=== PATIENT | male | born 1940 | race Caucasian/White ===

== ENCOUNTER 2018-08-24 19:06 | Observation (INO) | payer MEDICARE ==
--- NOTE | 2018-08-24 20:19 | ED ---
General Adult HPI - General Chief complaint: Shortness of Breath Stated complaint: A-Fib Time Seen by Provider: 08/24/18 19:25 Source: patient, EMS Mode of arrival: EMS - History of Present Illness Initial comments: Dictation was produced using [employer] dictation software. please excuse any grammatical, word or spelling errors. Chief Complaint: 77-year-old male transferred from [place] for new onset atrial fibrillation History of Present Illness: 77-year-old male with past medical history of diabetes presents via transfer from [place] emergency department. Patient was seen and evaluated by emergency department physician there. He was found to have new-onset atrial fibrillation who started on Cardizem and heparin infusions. Patient reports having been symptomatic for approximately one month. Patient has other complaint at this time. Denies any chest pain. The ROS documented in this emergency department record has been reviewed and confirmed by me. Those systems with pertinent positive or negative responses have been documented in the HPI. All other systems are other negative and/or noncontributory. PHYSICAL EXAM: General Impression: Alert and oriented x3, not in acute distress HEENT: Normocephalic atraumatic, extra-ocular movements intact, pupils equal and reactive to light bilaterally, mucous membranes moist. Cardiovascular: Irregularly irregular rhythm. Chest: Lungs clear to auscultation bilaterally, no rhonchi, no wheeze, no rales Abdomen: Bowel sounds present, abdomen soft, non-tender, non-distended, no organomegaly Musculoskeletal: Pulses present and equal in all extremities, no peripheral edema Motor: no focal deficits noted Neurological: CN II-XII grossly intact, no focal motor or sensory deficits noted Skin: Intact with no visualized rashes Psych: Normal affect and mood ED course: 77-year-old male presents via transfer from [facility] foratrial fibrillation. Patient is evaluated at bedside 5 beats to medical condition. Labs and records were reviewed from [facility]. Patient appears stable at this time. Patient be admitted. Patient's rate is controlled with Cardizem drip. EKG interpretation: Ventricular rate 78, H or for ablation, QRS 120, QTc 41. No IL prolongation, no QTC prolongation, no ST or T-wave changes noted. - Related Data Home Medications Medication Instructions Recorded Confirmed Enalapril [Vasotec] 20 mg PO DAILY 08/24/18 08/24/18 amLODIPine [Norvasc] 10 mg PO DAILY 08/24/18 08/24/18 metFORMIN HCL [Glucophage] 500 mg PO BID 08/24/18 08/24/18 sitaGLIPtin [Januvia] 100 mg PO DAILY 08/24/18 08/24/18 Allergies Allergy/AdvReac Type Severity Reaction Status Date / Time glipizide Allergy Unknown Verified 08/24/18 20:04 Review of Systems ROS Statement: Those systems with pertinent positive or pertinent negative responses have been documented in the HPI. ROS Other: All systems not noted in ROS Statement are negative. Past Medical History Past Medical History: Atrial Fibrillation, Diabetes Mellitus, Myocardial Infarction ([place]) History of Any Multi-Drug Resistant Organisms: None Reported Past Surgical History: No Surgical Hx Reported Past Psychological History: No Psychological Hx Reported Smoking Status: Current every day smoker Past Alcohol Use History: None Reported Past Drug Use History: None Reported Course Vital Signs 08/24/18 08/24/18 19:16 19:24 Pulse Rate 73 Respiratory 20 20 Rate Blood Pressure 107/96 O2 Sat by Pulse 93 L Oximetry Disposition Clinical Impression: Atrial fibrillation Disposition: ADMITTED IP TO THIS HOSP Condition: Good Referrals: Geo Lee MD [Primary Care Provider] - 1-2 days Decision Time: 20:19
[2018-08-24] MEDS ORDERED: NALOXONE 0.4 MG/ML 1 ML VIAL IV PRN (21:03)
[2018-08-24] MEDS ORDERED: SODIUM CHLORIDE 0.9% 1,000 ML IV SCH (21:15)
[2018-08-24] MEDS ORDERED: IPRATROPIUM-ALBUTEROL 3 ML NEB INHALATION STA (22:08)
[2018-08-25 00:01] VITALS: BMI 37.1
[2018-08-25] MEDS ORDERED: HEPARIN SODIUM,PORCINE 5,000 UNIT/ML 1 ML VIAL IV PRN (01:10)
[2018-08-25] MEDS ORDERED: HEPARIN SODIUM,PORCINE 5,000 UNIT/ML 1 ML VIAL IV ONE (01:10)
[2018-08-25] MEDS ORDERED: HEPARIN SOD,PORK IN 0.45% NACL 25,000 UNIT in 0.45% NACL 1 250ML.BAG IV SCH (01:15)
[2018-08-25 02:59] LABS: HCT 45.3 % (39.0-53.0); HGB 14.4 gm/dL (13.0-17.5); MCH 28.2 pg (25.0-35.0); MCHC 31.7 g/dL (31.0-37.0); Mean Platelet Volume 7.7; Platelet Count 198 k/uL (150-450); RBC 5.09 m/uL (4.30-5.90); RDW 13.9 % (11.5-15.5); WBC 10.1 k/uL (3.8-10.6)
[2018-08-25 03:34] LABS: Potassium 4.4 mmol/L (3.5-5.1)
[2018-08-25 06:36] LABS: Glucose,Whole Blood 112 mg/dL (75-99)
[2018-08-25] MEDS: IPRATROPIUM-ALBUTEROL 3 ML NEB INHALATION PRN ×2 (06:52→11:00)
--- NOTE | 2018-08-25 08:00 | XR ---
EXAMINATION TYPE: XR chest 1V portable DATE OF EXAM: 08/25/2018 HISTORY: Shortness of breath. COMPARISON: None. TECHNIQUE: Single view of the chest is submitted. FINDINGS: Patchy basilar infiltrates and/or atelectasis with small effusions. Scattered areas of linear atelect asis persists. The heart is stable. Hilar and mediastinal structures are within normal limits. Degenerative changes are seen of the dorsal spine. IMPRESSION: 1. Patchy basilar infiltrates and/or atelectasis with small effusions. Scattered areas of linear ate lectasis persists.
[2018-08-25] MEDS ORDERED: METOPROLOL TARTRATE 25 MG TAB PO SCH (09:00)
[2018-08-25] MEDS ORDERED: FUROSEMIDE 10 MG/ML 4 ML VIAL IV STA (09:29)
--- NOTE | 2018-08-25 10:30 | US ---
EXAMINATION TYPE: US venous doppler duplex LE BI DATE OF EXAM: 08/25/2018 10:20 AM COMPARISON: NONE CLINICAL HISTORY: elevated d-dimer. Elevated d-dimer, bilateral lower leg and feet swelling, patient on blood thinners, exam done portable. SIDE PERFORMED: Bilateral TECHNIQUE: The lower extremity deep venous system is examined utilizing real time linear array sonog josee with graded compression, doppler sonography and color-flow sonography. VESSELS IMAGED: External Iliac Vein (EIV) Common Femoral Vein Deep Femoral Vein Greater Saphenous Vein * Femoral Vein Popliteal Vein Small Saphenous Vein * Proximal Calf Veins (* superficial vessels) Difficult and limited study due to patient body habitus and exam done with patient sitting up in be dside chair, unable to obtain images of bilateral EIV, greater saphenous vein, CFV and deep femoral v ein due to patient position, exam started at proximal/mid femoral vein. Right Leg: Visualized portions appear negative for DVT Left Leg: Visualized portions appear negative for DVT IMPRESSION: No evidence for DVT at this time.
[2018-08-25 10:44] LABS: Cholesterol 100 mg/dL (<200); HDL Cholesterol 28 mg/dL (40-60); LDL Cholesterol,Calculated 60 mg/dL (0-99); Triglycerides 59 mg/dL (<150)
--- NOTE | 2018-08-25 10:52 | P.CRDCN ---
History of Present Illness History of present illness: This is Dr. Chavez dictating a consult on this patient The patient was interviewed and examined by me IMPRESSION / ASSESSMENT: Atrial fibrillation with a controlled ventricular response Shortness of breath at rest Type 2 diabetes Hypertension, controlled PLAN: 2-D echo and Doppler study to assess cardiac structure and function Workup for pulmonary embolism recommended given the elevated d-dimer Continue metoprolol Continue IV heparin IV Lasix tsh HPI 77-year-old male patient presenting with shortness of breath for 3-4 months but very short of breath now for the last one week. For the last 3-4 days he's had progressive lower extremity edema. Completely denies angina or chest discomfort History of adult-onset diabetes, hypertension Found to be in atrial fibrillation, currently the heart rates are controlled Continue IV heparin Metoprolol 25 mg twice daily ROS: No fever chills or rigors, no cough, phlegm or expectoration, no nausea, vomiting or diarrhea, no hematuria, dysuria, no musculoskeletal complaints, no strokes or seizures, no skin lesions. EXAMINATION: On examination he is visibly short of breath at rest. Very short of breath with minimal exertion, complains of orthopnea, heart rates in 100 110 beats a minute Blood pressure 119/70 mmHg respirations 20 Breath sounds are reduced bilaterally with rhonchorous breath sounds bilaterally and some crackles at both bases Heart sounds are irregular Abdomen is soft Bilateral lower extremity edema REVIEW OF LABS, ECG & MEDICAL DATA Hemoglobin 14.4, white count 10.1, sodium 138, potassium 4.4, BUN 21 and creatinine 0.98 ProBNP 2700 D-dimer 1.1 Past Medical History Past Medical History: Atrial Fibrillation, COPD, Diabetes Mellitus, Hypertension Additional Past Medical History / Comment(s): Chroncic Bronchitis History of Any Multi-Drug Resistant Organisms: None Reported Past Surgical History: No Surgical Hx Reported Past Anesthesia/Blood Transfusion Reactions: No Reported Reaction Past Psychological History: No Psychological Hx Reported Smoking Status: Current every day smoker Past Alcohol Use History: None Reported Past Drug Use History: None Reported Medications and Allergies Home Medications Medication Instructions Recorded Confirmed Type Enalapril [Vasotec] 20 mg PO DAILY 08/24/18 08/24/18 History amLODIPine [Norvasc] 10 mg PO DAILY 08/24/18 08/24/18 History metFORMIN HCL [Glucophage] 500 mg PO BID 08/24/18 08/24/18 History sitaGLIPtin [Januvia] 100 mg PO DAILY 08/24/18 08/24/18 History Allergies Allergy/AdvReac Type Severity Reaction Status Date / Time glipizide Allergy Unknown Verified 08/24/18 20:04 Physical Exam Vitals: Vital Signs Temp Pulse Pulse Resp BP BP Pulse Ox 08/25/18 08:00 98.2 F 74 20 119/70 97 08/25/18 07:04 108 H 08/25/18 06:54 100 08/25/18 03:54 97.9 F 100 20 106/66 93 L 08/25/18 01:22 95 08/25/18 01:16 90 08/25/18 00:00 97.9 F 79 21 127/79 96 08/24/18 23:04 97.6 F 90 22 100/70 95 08/24/18 22:31 99 08/24/18 22:24 98 08/24/18 19:24 20 08/24/18 19:23 97.8 F 08/24/18 19:16 73 20 107/96 93 L Intake and Output 08/24/18 08/25/18 08/25/18 22:59 06:59 14:59 Intake Total 240 Output Total 550 Balance -550 240 Intake: Oral 240 Output: Urine 550 Other: Weight 104.326 kg 104.3 kg Results 08/25/18 01:44 08/25/18 01:44 Coagulation 08/25/18 08/25/18 Range/Units 01:44 09:32 APTT 26.0 39.5 H (22.0-30.0) sec Lipids 08/25/18 Range/Units 09:32 Triglycerides 59 (<150) mg/dL Cholesterol 100 (<200) mg/dL HDL Cholesterol 28 L (40-60) mg/dL CBC 08/25/18 Range/Units 01:44 WBC 10.1 (3.8-10.6) k/uL RBC 5.09 (4.30-5.90) m/uL Hgb 14.4 (13.0-17.5) gm/dL Hct 45.3 (39.0-53.0) % Plt Count 198 (150-450) k/uL Comprehensive Metabolic Panel 08/25/18 Range/Units 01:44 Sodium 138 (137-145) mmol/L Potassium 4.4 (3.5-5.1) mmol/L Chloride 105 (98-107) mmol/L Carbon Dioxide 23 (22-30) mmol/L BUN 21 H (9-20) mg/dL Creatinine 0.98 (0.66-1.25) mg/dL Glucose 139 H (74-99) mg/dL Calcium 9.0 (8.4-10.2) mg/dL Current Medications Generic Name Dose Route Start Last Admin Trade Name Jacobyq PRN Reason Stop Dose Admin Albuterol/Ipratropium 3 ml 08/24/18 22:08 08/25/18 06:52 Duoneb 0.5 Mg-3 Mg/3 Ml Soln INHALATION 3 ml RT-QID PRN Administration Shortness Of Breath Or Wheezing Furosemide 40 mg 08/25/18 11:00 Lasix IV DAILY BLANCA Heparin Sodium (Porcine) 0 unit 08/25/18 01:10 Heparin IV PER PROTOCOL PRN Low PTT Protocol Heparin Sodium/Sodium Chloride 250 mls @ 9.389 mls/hr 08/25/18 01:15 08/25/18 03:17 25,000 unit/ Sodium Chloride IV 9.59 units/kg/hr .Q24H BLANCA 10 mls/hr Administration Protocol 9 UNITS/KG/HR Metoprolol Tartrate 25 mg 08/25/18 09:00 08/25/18 06:30 Lopressor PO 25 mg BID BLANCA Administration Naloxone HCl 0.2 mg 08/24/18 21:03 Narcan IV Q2M PRN Opioid Reversal Intake and Output 08/24/18 08/25/18 08/25/18 22:59 06:59 14:59 Intake Total 240 Output Total 550 Balance -550 240 Intake: Oral 240 Output: Urine 550 Other: Weight 104.326 kg 104.3 kg 08/25/18 01:44 08/25/18 01:44
[2018-08-25] MEDS ORDERED: FUROSEMIDE 10 MG/ML 4 ML VIAL IV SCH (11:00)
[2018-08-25] MEDS ORDERED: methylPREDNISolone SOD SUCCI 40 MG/ML 1 ML VIAL IV SCH (11:33)
[2018-08-25 12:03] LABS: Glucose,Whole Blood 90 mg/dL (75-99)
[2018-08-25] MEDS ORDERED: INSULIN ASPART (NovoLOG) 100 UNIT/ML VIAL SQ SCH (12:30)
--- NOTE | 2018-08-25 13:00 | CT ---
EXAMINATION TYPE: CT angio chest DATE OF EXAM: 08/25/2018 COMPARISON: Chest x-ray dated 08/25/2018 HISTORY: Difficulty breathing CT DLP: 588.3 mGycm. Automated Exposure Control for Dose Reduction was Utilized. CONTRAST: CTA scan of the thorax is performed with IV Contrast, patient injected with 100 mL of Isovue 370, pul monary embolism protocol. MIP Images are created on CT scanner and reviewed. FINDINGS: There is satisfactory enhancement of the pulmonary artery and its branches, there is no CT evidence f or pulmonary embolism. There is a right infrahilar soft tissue density measuring 1.5 cm on image 69 o f series 401. This may represent adenopathy or a perihilar mass. Additionally in the infrahilar right mediastinum there is peribronchial soft tissue density and segmental right middle lobe collapse. Lar ge calcification is seen within the superior aspect of this atelectasis on image 83. There are small bilateral pleural effusions, right greater than left with associated compressive atelectasis, however of the left lung base there is a focal consolidation with few areas of peripheral and internal low d ensity suspicious for pneumonia. This is seen on lung algorithm and soft tissue algorithm image 110. No pericardial effusion is seen. Heart is mildly enlarged. Moderate coronary artery calcifications ar e evident. The gallbladder is only partially visualized but nearly hydropic in size measuring 9.7 cm. Small splenule's are seen inferior to the [place] spleen. Some periportal fat stranding is nonspecifi c. There is left axillary adenopathy deep to the pectoralis muscle measuring up to 1.2 cm in short ax is on image 31 with numerous other enlarged and prominent left axillary lymph nodes. Moderate multile linda degenerative change of the spine is present. Dependent scattered groundglass opacities and interlobular septal thickening favor cardiogenic fluid overload. Mild background pulmonary emphysema is also present. IMPRESSION: 1. No evidence of pulmonary embolus. 2. Left basilar consolidation with areas of low density suspicious for pneumonia. 3. Right perihilar soft tissue density. The rounded soft tissue density may represent adenopathy or p erihilar mass with the linear peribronchial soft tissue density suspicious. This may represent reacti ve or infectious etiology. There is also segmental right middle lobe collapse and therefore bronchosc opy could be considered for these findings. 4. Small pleural effusions, right greater than left with mild cardiomegaly and findings of pulmonary edema on the basis of cardiogenic fluid overload. 5. Multifocal subsegmental compressive right sided atelectasis.
--- NOTE | 2018-08-25 13:11 | HP ---
HISTORY AND PHYSICAL CHIEF COMPLAINT: Swelling in the lower extremities and shortness of breath. HISTORY OF PRESENT ILLNESS: This is the first admission for this 77-year-old white male who is very poor historian. He came to the emergency room stating he had been getting progressively short of breath without any chest pain. He also noted some lower extremity edema, which is same on both sides. He has had no calf pain. He has never had a history of DVT or pulmonary emboli. In the emergency room, he was found to be in atrial fibrillation, which was unknown to him. He did not have a particularly rapid rate. He does have a history of diabetes. He was transferred in from [facility]. He was placed on Cardizem drip in [place]. an MRI. His shortness of breath and had been going on for a month and he had not had a history of heart disease in the past. MEDICATIONS INCLUDE: 1. Enalapril 20 mg once a day. 2. Amlodipine 10 mg once a day. 3. Metformin 500 mg once a day. 4. Januvia 100 mg once a day. He is allergic to GLIPIZIDE. Past medical history, family history, personal and social history are otherwise is sounds the noncontributory. He does have a pacemaker and he smokes about a half a pack of cigarettes a day. PHYSICAL EXAMINATION: Blood pressure is 107/96 with a pulse 73 and irregularly irregular, respirations of 20 and he is afebrile. In general, he appeared to be in no acute distress. Skin was slightly pale. Lymph nodes are not enlarged. Head, ears, eyes, nose, mouth and throat were normal and neck veins were not distended. Chest demonstrated occasional rales in the bases. The cardiac exam demonstrated atrial fibrillation the. Abdomen is soft, nontender and he had 3 4+ edema in both lower extremities without any calf, pain on tenderness. Neurologically his Neurologic is intact to the. HOSPITAL DIAGNOSES: 1. Acute congestive heart failure. 2. New onset atrial fibrillation. 3. History of hypertension. 4. Type 2 and IDDM. 5. Chronic obstructive pulmonary disease. 6. Elevated D-dimer is known. 7. Elevated BNP. PLAN: 1. Bed rest. 2. IV fluids. 3. Echocardiogram. 4. CTA of the chest. 5. Attempt to convert to normal sinus rhythm. 6. Monitor blood sugars. MMODL / IJN: [id number] /
--- NOTE | 2018-08-25 13:14 | P.CNPUL ---
History of Present Illness Consult date: 08/25/18 Reason for consult: dyspnea History of present illness: A 77-year-old new patient, a chronic smoker, was having symptoms of chronic cough for a long period of time. The patient's cough and can worsen the patient developed an acute bronchitis as the patient was getting more short of breath and bronchospastic and wheezy. Subsequently he became more short of breath and he developed swelling in lower extremities. He went to [facility] where the patient was found to have atrial fibrillation with rapid ventricular response. He was also short of breath. He got transferred to our hospital. No angina. No palpitations no previous history of DVT or pulmonary embolism. CT angiogram showed no evidence of any pulmonary embolism. Left basilar consolidation with areas of low density suspicious for pneumonia. There is a right perihilar soft tissue density probably an area of adenopathy and the patient was also found to have small pleural effusion right more than left consistent with heart failure and edema. Segmental compressive atelectasis also seen in the right lung base. The Doppler of the lower extremity has been negative for DVT. No history of asthma. No history of frequent pneumonias. No previous surgeries. Review of Systems Constitutional: Reports fatigue, Reports lethargy, Reports weight gain Eyes: denies as per HPI, denies blurred vision, denies bulging eye, denies decreased vision, denies diplopia, denies discharge, denies dry eye, denies irritation, denies itching, denies pain, denies photophobia, denies loss of peripheral vision, denies loss of vision, denies tunnel vision/blind spots Ears: deny: decreased hearing, ear discharge, earache, tinnitus Ears, nose, mouth and throat: Denies headache, Denies sore throat Cardiovascular: Reports decreased exercise tolerance, Reports dyspnea on exertion, Reports irregular heart beat, Reports palpitations, Reports shortness of breath Respiratory: Reports cough, Reports dyspnea, Reports wheezing Gastrointestinal: Denies abdominal pain, Denies diarrhea, Denies nausea, Denies vomiting Genitourinary: Reports as per HPI Musculoskeletal: Denies myalgias Musculoskeletal: bilateral: ankle swelling, absent: ankle pain, ankle stiffness Integumentary: Denies pruritus, Denies rash Neurological: Reports weakness Psychiatric: Reports as per HPI Endocrine: Reports fatigue Hematologic/Lymphatic: Reports as per HPI Allergic/Immunologic: Reports as per HPI Past Medical History Past Medical History: Atrial Fibrillation, COPD, Diabetes Mellitus, Hypertension Additional Past Medical History / Comment(s): Chroncic Bronchitis History of Any Multi-Drug Resistant Organisms: None Reported Past Surgical History: No Surgical Hx Reported Past Anesthesia/Blood Transfusion Reactions: No Reported Reaction Past Psychological History: No Psychological Hx Reported Smoking Status: Current every day smoker Past Alcohol Use History: None Reported Past Drug Use History: None Reported Medications and Allergies Home Medications Medication Instructions Recorded Confirmed Type Enalapril [Vasotec] 20 mg PO DAILY 08/24/18 08/24/18 History amLODIPine [Norvasc] 10 mg PO DAILY 08/24/18 08/24/18 History metFORMIN HCL [Glucophage] 500 mg PO BID 08/24/18 08/24/18 History sitaGLIPtin [Januvia] 100 mg PO DAILY 08/24/18 08/24/18 History Allergies Allergy/AdvReac Type Severity Reaction Status Date / Time glipizide Allergy Unknown Verified 08/24/18 20:04 Physical Exam Vitals: Vital Signs Temp Pulse Pulse Resp BP BP Pulse Ox 08/25/18 11:14 100 08/25/18 11:02 104 H 12 08/25/18 08:00 98.2 F 74 20 119/70 97 08/25/18 07:04 108 H 08/25/18 06:54 100 08/25/18 03:54 97.9 F 100 20 106/66 93 L 08/25/18 01:22 95 08/25/18 01:16 90 08/25/18 00:00 97.9 F 79 21 127/79 96 08/24/18 23:04 97.6 F 90 22 100/70 95 08/24/18 22:31 99 08/24/18 22:24 98 08/24/18 19:24 20 08/24/18 19:23 97.8 F 08/24/18 19:16 73 20 107/96 93 L Intake and Output 08/24/18 08/25/18 08/25/18 22:59 06:59 14:59 Intake Total 570.167 Output Total 550 Balance -550 570.167 Intake: Intake, IV Titration 90.167 Amount Heparin Sod,Pork in 0.45% 90.167 NaCl 25,000 unit In 0.45 % NaCl 1 250ml.bag @ 9 UNITS/KG/HR 9.389 mls/hr IV .Q24H BLANCA Rx#: [id number] Oral 480 Output: Urine 550 Other: # Voids 1 # Bowel Movements 1 Weight 104.326 kg 104.3 kg Obese, comfortable no acute distress Head exam was generally normal. There was no scleral icterus or corneal arcus. Mucous membranes were moist. Neck was supple and without jugular venous distension, thyromegaly, or carotid bruits. Carotids were easily palpable bilaterally. There was no adenopathy. Patient has a Mallampati class IV and there is no goiter or neck masses. Lungs sounds are diminished bilaterally along with some scattered expiratory wheezes heard throughout the lung pyle diminished breath sounds are also present in the right lung base. Heart sounds are irregular positive S1-S2 and there is no significant murmurs appreciated. Overall heart sounds are distant. Abdominal exam revealed normal bowel sounds. The abdomen was soft, non-tender, and without masses, organomegaly, or appreciable enlargement of the abdominal aorta. Examination of the extremities revealed easily palpable radial, femoral and pedal pulses. There was no cyanosis, clubbing and there is +1 pitting edema lower extremity is bilaterally Examination of the skin revealed no evidence of significant rashes, suspicious appearing nevi or other concerning lesions. Neurologically awake and alert and there is no focal neurological deficits. Results - Laboratory Findings CBC and BMP: 08/25/18 01:44 08/25/18 01:44 PT/INR, D-dimer D-Dimer 1.10 mg/L FEU (<0.60) H 08/25/18 06:59 Abnormal lab findings: Abnormal Labs 08/25/18 08/25/18 08/25/18 01:44 06:31 06:59 APTT D-Dimer 1.10 H BUN 21 H Glucose 139 H POC Glucose (mg/dL) 112 H HDL Cholesterol 08/25/18 08/25/18 09:32 09:32 APTT 39.5 H D-Dimer BUN Glucose POC Glucose (mg/dL) HDL Cholesterol 28 L - Diagnostic Findings Chest x-ray: image reviewed CT scan - chest: image reviewed Assessment and Plan Plan: Assessment 1 new onset atrial fibrillation with rapid ventricular response 2 acute CHF secondary to above him a consider systolic heart failure and echocardiogram is still pending for now 3. Questionable lymphadenopathy within the right hilar area, needs to be followed up at a later stage on outpatient basis once his overall condition stabilized 4 acute bronchitis , CT angios the chest showed no evidence of any pulmonary embolism 5 small bilateral pleural effusion right more than left secondary to underlying CHF/fluid overload 6 diabetes mellitus type 2 7 hypertension 8 obesity with a BMI of 37.1 9 smoker 10 Lower extremity edema secondary to above Plan Put the patient on DuoNeb nebulized treatments around the clock. IV Solu Medrol. IV heparin. IV Lasix 40 mg every 24 hours. Echocardiogram. Rate co ntrol with metoprolol 25 mg twice a day. Will reassured regarding the right hilar abnormalities and this needs to be followed up at a later stage on outpatient basis stressed and the patient is a chronic smoker and he may get a high risk of developing malignancies the future. The right hilar lymph node is nonspecific at this point in time and small has not demonstrated any other abnormalities. We'll continue to follow.
[2018-08-25 13:50] LABS: Hemoglobin A1C 6.7 % (4.0-6.0)
[2018-08-25 13:55] LABS: Glucose,Whole Blood 200 mg/dL (75-99)
--- NOTE | 2018-08-25 14:53 | CT ---
EXAMINATION TYPE: CODE STROKE: CTA head neck DATE OF EXAM: 08/25/2018 HISTORY: Right sided facial droop COMPARISON: NONE CT DLP: 464.5 mGycm. Automated Exposure Control for Dose Reduction was Utilized. TECHNIQUE: CTA scan of the neck is performed with IV Contrast, patient injected with 65 mL of Isovue 370, axial images are obtained, coronal and sagittal reformatted images are reviewed. Three-D recons tructed images are created on an independent workstation and reviewed. FINDINGS: Carotid/Vascular Structures: There is high-grade stenosis of the left internal carotid artery measuri ng approximately 80% and a short segment of approximately 6 to 7 mm. This is secondary to calcific an d noncalcific atheromatous plaquing. This is seen approximately 6 mm distal to the carotid bulb. Ther e is nonhemodynamically significant atherosclerosis of the bilateral common carotid arteries and still tid bulbs. There is approximately 50% stenosis of the right internal carotid artery extending approxi mately 8 mm located approximately 7 mm from the carotid bulb. The left vertebral artery is dominant. Posterior circulation is intact. Nonhemodynamically significan t atheromatous plaquing is seen of the cavernous and supraclinoid portions of the internal carotid ar teries. Posterior communicating arteries are not definitely seen and may be diminutive or congenitall y absent. No sizable intracranial aneurysm is seen. Other: Partial visualization of a right pleural effusion and moderate emphysematous changes of the martin ngs. Moderate multilevel degenerative changes of the cervical spine are present. Near complete opacif ication of the left maxillary sinus and moderate mucosal thickening of the ethmoid sinuses with scant mucosal thickening of the right maxillary sinus are seen. Cerebral atrophy and likely age-related. E valuation of the intracranial structures is suboptimal given arterial phase enhancement. IMPRESSION: 1. Short segment high-grade stenosis of approximately 80% within the left internal carotid artery spa nning a distance of 6 to 7 mm and located 6 mm distal to the carotid bulb. 2. Approximately 50% stenosis of the right internal carotid artery extending 8 mm in length located a pproximately 7 mm the carotid bulb. 3. No evidence of vascular occlusion or aneurysmal dilatation of the major intracranial vasculature o f the head or neck. 4. Partial visualization of a right pleural effusion and moderate emphysematous changes of the lung a pices.
[2018-08-25 14:55] LABS: Basophils # (A) 0.1 k/uL (0-0.2); Basophils % (A) 1 %; Eosinophils # (A) 0.1 k/uL (0-0.7); Eosinophils % (A) 1 %; HGB 15.7 gm/dL (13.0-17.5); Lymphocytes # (A) 0.7 k/uL (1.0-4.8); Lymphocytes % (A) 8 %; MCH 28.1 pg (25.0-35.0); MCHC 31.5 g/dL (31.0-37.0); MCV 89.4 fL (80.0-100.0); Mean Platelet Volume 7.6; Monocytes # (A) 0.4 k/uL (0-1.0); Monocytes % (A) 5 %; Neutrophils # (A) 7.2 k/uL (1.3-7.7); Neutrophils % (A) 85 %; Platelet Count 187 k/uL (150-450); RBC 5.59 m/uL (4.30-5.90); RDW 13.8 % (11.5-15.5); WBC 8.5 k/uL (3.8-10.6)
[2018-08-25] MEDS ORDERED: SODIUM CHLORIDE 0.9% 1,000 ML IV ONE (14:56)
[2018-08-25 15:02] LABS: INR 1.1 (<1.2); Prothrombin Time 11.5 sec (9.0-12.0)
[2018-08-25] MEDS ORDERED: ASPIRIN 300 MG SUPP RECTAL STA (15:03)
[2018-08-25 15:05] VITALS: RESP 20; TEMP 97.7
[2018-08-25 15:15] LABS: Albumin 4.1 g/dL (3.5-5.0); Calcium 9.3 mg/dL (8.4-10.2); Potassium 4.8 mmol/L (3.5-5.1); Total Bilirubin 0.7 mg/dL (0.2-1.3)
[2018-08-25 15:24] LABS: Creatine Kinase MB 4.4 ng/mL (0.0-2.4)
[2018-08-25 15:29] VITALS: BP 128/101; PULSE 122
--- NOTE | 2018-08-25 15:50 | PN ---
PROGRESS NOTE CHIEF COMPLAINT: Shortness of breath and edema. HISTORY OF PRESENT ILLNESS: This gentleman is doing fairly well. He is still short of breath. Workup is underway. PHYSICAL EXAMINATION: Chest demonstrates decreased breath sounds with rales at bases. Cardiac exam is unremarkable. The abdomen is soft and nontender. Extremities demonstrated edema in the lower extremities. IMPRESSION: 1. Chronic obstructive pulmonary disease. 2. Dependent edema. 3. Congestive heart failure. 4. Type 2 diabetes. PLAN: 1. CTA. 2. Treat his congestive heart failure and COPD for the time being until CTA results come back. MMODL / IJN: [id number] /
--- NOTE | 2018-08-26 08:44 | DS ---
DISCHARGE SUMMARY CHIEF COMPLAINT: Difficulty breathing with new onset atrial fibrillation. HISTORY OF PRESENT ILLNESS AND PHYSICAL EXAM: Details of this man's history and physical can be found in the initial workup. LABORATORY STUDIES: While he was in a hospital, he had laboratory studies, details of which can be found in the laboratory section of his chart. COURSE IN HOSPITAL: After admission, he was placed on bedrest and started on intravenous fluids. He was found to have elevated D-dimer and a CTA was ordered. However, he suddenly developed stroke-like symptoms and the A team was summoned. CT suggested a tight left carotid stenosis. A code stroke was called and arrangements were eventually made for him to go to [facility]. FINAL DIAGNOSES: 1. Left-sided cerebrovascular accident. 2. New onset atrial fibrillation. 3. Congestive heart failure. 4. Diabetes mellitus. OPERATIONS: None. CONSULTATIONS: None. He is not improved. MMODL / YOLANDAN: [id number] /
[2018-08-26] MEDS ORDERED: amLODIPine 10 MG TAB PO SCH (09:00)
[2018-08-26] MEDS ORDERED: LISINOPRIL 20 MG TAB PO SCH (09:00)
[2018-08-26] MEDS ORDERED: LINAGLIPTIN 5 MG TABLET PO SCH (09:00)
--- NOTE | 2018-08-28 11:45 | ECHOF ---
Referral Reason:elevated BNP MEASUREMENTS -------- HEIGHT: 167.6 cm WEIGHT: 103.9 kg BP: RVIDd: 3.5 cm (< 3.3) IVSd: 1.3 cm (0.6 - 1.1) LVIDd: 4.5 cm (3.9 - 5.3) LVPWd: 1.4 cm (0.6 - 1.1) IVSs: 1.6 cm LVIDs: 3.5 cm LVPWs: 2.0 cm Ao Diam: 3.0 cm (2.0 - 3.7) AV Cusp: 2.1 cm (1.5 - 2.6) LA Diam: 4.7 cm (2.7 - 3.8) MV EXCURSION: 14.425 mm (> 18.000) MV EF SLOPE: 51 mm/s (70 - 150) EPSS: 1.4 cm AR PHT: 377 ms FINDINGS -------- Atrial fibrillation. This was a technically difficult study with suboptimal views. The left ventricular size is normal. There is mild concentric left ventricular hypertrophy. Overa ll left ventricular systolic function is mildly impaired with, an EF between 45 - 50 %. The right ventricle is mildly enlarged. The RV was not well visualized. The left atrium is moderately dilated. The right atrium was not well visualized. Lumason used Trace amount of aortic regurgitation. The mitral valve was not well visualized. Trace tricuspid regurgitation present. Unable to estimate rvsp. The pulmonic valve was not well visualized. CONCLUSIONS -------- 1. Atrial fibrillation. 2. This was a technically difficult study with suboptimal views. 3. The left ventricular size is normal. 4. There is mild concentric left ventricular hypertrophy. 5. Overall left ventricular systolic function is mildly impaired with, an EF between 45 - 50 %. 6. The right ventricle is mildly enlarged. 7. The RV was not well visualized. 8. The left atrium is moderately dilated. 9. The right atrium was not well visualized. 10. Lumason used 11. Trace amount of aortic regurgitation. 12. The mitral valve was not well visualized. 13. Trace tricuspid regurgitation present. Unable to estimate rvsp 14. The pulmonic valve was not well visualized. RETAIL LOAN OFFICER: Brunilda Cruz RDCS
== END 2018-08-25 15:23 | disposition short-term general hospital (02) ==
LOC: EC 19:06 → 3SCARD 21:03
PROVIDERS: ADMIT Family Medicine; ATTEND Family Medicine
DX: I48.91 Unspecified atrial fibrillation (principal); I63.9 Cerebral infarction, unspecified; E11.9 Type 2 diabetes mellitus without complications; I25.2 Old myocardial infarction; E66.9 Obesity, unspecified; Z68.37 Body mass index [BMI] 37.0-37.9, adult; F17.210 Nicotine dependence, cigarettes, uncomplicated; I11.0 Hypertensive heart disease with heart failure; I50.9 Heart failure, unspecified; J44.0 Chronic obstructive pulmonary disease with (acute) lower respiratory infection; J20.9 Acute bronchitis, unspecified; Z95.0 Presence of cardiac pacemaker; Z79.84 Long term (current) use of oral hypoglycemic drugs; Z79.899 Other long term (current) drug therapy; Z88.8 Allergy status to other drugs, medicaments and biological substances
CPT/HCPCS: 96376; 96365; 96366; 96375; 99285; 94640 ×2; 93005; 85379; 83880; 80061; 80053; 80048; 82550; 82553; 85025; 85027; 85610; 85730; 83036; 71045; 93970; 70496; 70498; 71275; G0378 ×2; C8929; J1644 ×2; J1940; J2920; Q9950; Q9967; 93306